=== PATIENT | female | born 1995 | race Hispanic/Latino ===

== ENCOUNTER 2022-10-21 20:40 | Emergency (ER) | payer BC, OTHER ==
[2022-10-21] MEDS ORDERED: Ketorolac Tromethamine 30 MG/ML VIAL ONE (21:14)
[2022-10-21] MEDS ORDERED: Acetaminophen 500 MG TAB ONE (21:14)
== END 2022-10-21 22:31 | disposition home or self-care (01) ==
LOC: ERS 20:40
DX: M54.50 Low back pain, unspecified (principal)
CPT/HCPCS: 72131; 96372; J1885

== ENCOUNTER 2022-12-09 09:50 | Outpatient (CLI) | payer BC | END 2022-12-09 09:51 | disposition home or self-care (01) | LOC: SCSMRI 09:50 | PROVIDERS: ATTEND Family Medicine | DX: M54.50 Low back pain, unspecified (principal); R93.7 Abnormal findings on diagnostic imaging of other parts of musculoskeletal system | CPT/HCPCS: 72148 ==

== ENCOUNTER 2023-03-23 03:21 | Emergency (ER) | payer BC ==
[2023-03-23 04:23] LABS: HIV (1/2) Antibody/Antigen Non-Reactive (NonReactive); HIV 1/2 INDEX 0.23 S/CO (<1.00); Hep C IgG Ab Non-Reactive S/CO (NonReactive); Hep C Index 0.18 S/CO (0-0.79)
[2023-03-23 04:46] LABS: Hep B Surf AB Reactive (NonReactive)
== END 2023-03-23 05:12 | disposition home or self-care (01) ==
LOC: ERS 03:21
DX: Z77.21 Contact with and (suspected) exposure to potentially hazardous body fluids (principal); W46.1XXA Contact with contaminated hypodermic needle, initial encounter
CPT/HCPCS: 99283

== ENCOUNTER 2023-07-14 02:33 | Emergency (ER) | payer BC ==
[2023-07-14 03:31] LABS: #Basophils Less than 0.03 10x3/uL (0.0-0.2); %Basophils 0.5 % (0.0-1.0); %Eosinophils 0.9 % (0.0-10.0); %Lymphocytes 29.2 % (21.0-51.0); %Monocytes 5.4 % (0.0-10.0); %Neutrophils 63.8 % (42.0-75.0); Hematocrit 42.1 % (36.0-47.0); Hemoglobin 14.8 g/dL (12.0-16.0); Mean Corpuscular HGB CONC 35.2 g/dL (32.0-36.0); Mean Corpuscular Volume 91.1 fL (78.0-98.0); Mean Platelet Volume 9.5 fL (7.4-10.4); Platelet Count 210 10x3/uL (130-400); RBC Distribution Width 11.5 % (11.5-14.5); Red Blood Cell (RBC) Count 4.62 mill/uL (4.20-5.40)
[2023-07-14 03:38] LABS: BHCG - Serum Negative (NEGATIVE); Pregs Control Background? CLEAR/WHITE (CLR/WHITE); Pregs Control Bar Appear? YES (CONTROL BAR)
[2023-07-14 03:54] LABS: ALT (SGPT) 15 U/L (8-55); AST (SGOT) 16 U/L (5-34); Albumin 4.8 g/dL (3.5-5.0); Alkaline Phosphatase 60 U/L (40-110); Anion Gap 16 mmol/L (10-20); BUN (Urea Nitrogen) 13 mg/dL (7.0-18.7); Bilirubin, Total 1.1 mg/dL (0.2-1.2); Calc. Creatinine Clearance 0 mL/min (70-130); Carbon Dioxide 22 mmol/L (22-29); Chloride 105 mmol/L (98-107); Estimated GFR 110; Globulin 3.5 g/dL (2.4-3.5); Glucose 94 mg/dL (70-105); Potassium 3.9 mmol/L (3.5-5.1); Protein, Total 8.3 g/dL (6.0-8.3); Sodium 139 mmol/L (136-145)
[2023-07-14 04:13] LABS: HBCM Index 0.14 S/CO (0-0.79); HBsAg Index 0.27 S/CO (0-0.99); HIV (1/2) Antibody/Antigen NONREACTIVE (NonReactive); HIV 1/2 INDEX 0.07 S/CO (<1.00); Hep A IgM AB NONREACTIVE (NonReactive); Hep A IgM S/CO 0.25 S/CO (0-0.79); Hep B Core Total Ab NONREACTIVE (NonReactive); Hep B Core Total Index 0.13 S/CO (0-0.79); Hep B Surf AB REACTIVE (NonReactive); Hep B Surf Ag NONREACTIVE S/CO (NonReactive); Hep C IgG Ab NONREACTIVE S/CO (NonReactive); Hepatitis B Core IgM Abs NONREACTIVE S/CO (NonReactive)
[2023-07-14] MEDS ORDERED: Emtricitabine/Tenofovir 200-300 MG TAB PO SCH (04:15)
[2023-07-14] MEDS ORDERED: Raltegravir Potassium 400 MG TAB PO SCH (04:15)
== END 2023-07-14 04:46 | disposition home or self-care (01) ==
LOC: EEVIPCON 02:33 → ERS 02:33
DX: S61.239A Puncture wound without foreign body of unspecified finger without damage to nail, initial encounter (principal); W46.0XXA Contact with hypodermic needle, initial encounter
CPT/HCPCS: 36415; 80053; 84703; 85025; 86704; 86705; 86706; 86709; 86803; 87340; 87389; 99283